=== PATIENT | female | born 1960 | race Caucasian/White ===

== ENCOUNTER 2020-04-26 08:06 | Outpatient (CLI) | payer OTHER ==
[2020-04-26] MEDS ORDERED: NALOXONE 1 MG/ML, 2ML ONE (08:42)
[2020-04-26] MEDS ORDERED: FLUMAZENIL 0.1 MG/1 ML, 5ML ONE (08:42)
[2020-04-26] MEDS ORDERED: MIDAZOLAM 1 MG/ML, 5ML ONE (08:42)
[2020-04-26] MEDS ORDERED: FENTANYL PF 100 MCG/2ML ONE (08:42)
== END 2020-04-26 23:59 | disposition home or self-care (01) ==
LOC: RAD 08:06
PROVIDERS: ATTEND Student in an Organized Health Care Education/Training Program
DX: M50.13 Cervical disc disorder with radiculopathy, cervicothoracic region (principal); M25.48 Effusion, other site; I10 Essential (primary) hypertension; Z79.899 Other long term (current) drug therapy; Z98.890 Other specified postprocedural states
CPT/HCPCS: 72141; 99156; 99157; J2250; J3010; J2310